=== PATIENT | female | born 1950 | race Caucasian/White ===

== ENCOUNTER → 2021-04-04 10:52 | Outpatient (BNVA) | payer MEDICARE, MEDICAID, SELFPAY | PROVIDERS: Visit Provider Nurse Practitioner | DX: R05.9 Cough, unspecified (principal) | CPT/HCPCS: 87400 ==

== ENCOUNTER → 2021-04-30 15:05 | Outpatient (BNVA) | payer MEDICARE, MEDICAID, SELFPAY | PROVIDERS: Visit Provider Family Medicine | DX: M25.562 Pain in left knee (principal) | CPT/HCPCS: 73562 ==

== ENCOUNTER 2021-09-10 11:52 | Outpatient (CLI) | payer OTHER, MEDICAID, SELFPAY ==
--- NOTE | 2021-09-10 12:02 | MR_ITS ---
WS: [id number] MRI LEFT KNEE NONCONTRAST TECHNIQUE: Axial PD, coronal PD fat sat, coronal PD, sagittal PD, and sagittal PD fat-sat images obta ined. CLINICAL INFORMATION: M25.562 - Pain in left knee COMPARISON: None. FINDINGS: Normal ACL and PCL. Distal quadriceps and patella tendons are intact. Slightly hypertrophic patella. Small amount of prepatellar and infrapatellar soft tissue edema. Small suprapatellar effusion. Peripheral extrusion of the medial and lateral meniscus. Horizontal tears involving the anterior horn lateral meniscus and posterior horn medial meniscus with extension to the articular surface. Grade I II to IV chondromalacia medial and lateral joint compartments with subchondral edema involving the la teral tibial plateau. Small amount of subchondral cystic change. Slight hypertrophic changes along th e joint line. Small amount of fluid and edema deep to the MCL compatible with grade one injury. Normal LCL. Normal popliteus. Grade III chondromalacia patella. Normal medial and lateral patellar retinaculum. Lobulate d popliteal cyst measuring 2.1 x 1.0 x 4.1 cm AP by transverse by craniocaudal MR/MR knee LT wo con* [id number] IMPRESSION: 1. Normal ACL and PCL. 2. Horizontal tear involving the posterior horn medial meniscus extending to t he articular surface and anterior horn lateral meniscus extending to the articu lar surface. Peripheral extrusion of the menisci bilaterally. 3. Small amount of edema and fluid deep to the MCL compatible with grade one i njury. 4. Grade 3-4 chondromalacia involving the medial and lateral joint compartment s with a small amount of subchondral edema along the lateral tibial plateau wit h subchondral cystic change. 5. Small suprapatellar effusion with grade III chondromalacia patella. 6. Popliteal cyst measures 2.1 x 1.0 x 4.1 cm AP by transverse by craniocaudal Outbridge grading: grade III: partial-thickness cartilage loss with focal ulcer ation
== END 2021-09-10 11:53 | disposition home or self-care (01) ==
LOC: RAD 11:54
PROVIDERS: Visit Provider Family Medicine
DX: M25.562 Pain in left knee (principal)
CPT/HCPCS: 73721

== ENCOUNTER 2021-09-23 17:45 | Emergency (ER) | payer MEDICARE, MEDICAID, SELFPAY ==
[2021-09-23 17:57] VITALS: BP 173/98; PULSE 86; RESP 18; TEMP 36.8; O2SAT 97; BMI 33.3
--- NOTE | 2021-09-23 18:10 | CTR_ITS ---
PROCEDURE INFORMATION: Exam: CT Head Without Contrast Exam date and time: 09/23/2021 7:27 PM Age: 71 years old Clinical indication: Dizziness; Additional info: Dizzy TECHNIQUE: Imaging protocol: Computed tomography of the head without contrast. Radiation optimization: All CT scans at this facility use at least one of these dose optimization techniques: automated exposure control; mA and/or kV adjustment per patient size (includes targeted exams where dose is matched to clinical indication); or iterative reconstruction. COMPARISON: No relevant prior studies available. RADIATION DOSE METRICS: Total DLP (mGy-cm): 920.34 FINDINGS: Brain: Mild white matter chronic microvascular changes are noted. No hemorrhage or evidence of acute infarction. Cerebral ventricles: No ventriculomegaly. Paranasal sinuses: Visualized sinuses are unremarkable. No fluid levels. Mastoid air cells: Visualized mastoid air cells are well aerated. Bones/joints: Unremarkable. No acute fracture. Soft tissues: Unremarkable. CT/CT head wo con* [id number] IMPRESSION: No acute intracranial abnormality.
--- NOTE | 2021-09-23 18:10 | XRR_ITS ---
PROCEDURE INFORMATION: Exam: XR Chest Exam date and time: 09/23/2021 6:26 PM Age: 71 years old Clinical indication: Dyspnea; Additional info: Syncope TECHNIQUE: Imaging protocol: Radiologic exam of the chest. Views: 1 view. COMPARISON: No relevant prior studies available. FINDINGS: Lungs: The lungs are clear. Pleural spaces: Unremarkable. No pleural effusion. No pneumothorax. Heart/Mediastinum: Rounded opacity adjacent to the left ventricle apex is likely a pericardial fat pad. The heart is normal in size. Lobular prominence of the left hilum may be secondary to tortuous vascularity or possibly mild lymphadenopathy. Bones/joints: Unremarkable. XR/XR chest 1V portable [id number] IMPRESSION: 1. No acute pulmonary abnormality. 2. Tortuous vascularity versus mild lymphadenopathy in the left hilum. Correlate with prior imaging if available.
--- NOTE | 2021-09-23 18:10 | ECG_ITS ---
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 Measurements Intervals [place] Rate: 77 P: 76 OK: 151 QRS: 14 QRSD: 86 T: 55 QT: 369 QTc: 419 Interpretive Statements SINUS RHYTHM INTERPRETATION BASED ON A DEFAULT AGE OF 40 YEARS No previous ECG available for comparison Electronically Signed On 09-23-2021 22:30:31 CDT by José Luis Cote M.D. [email or web address] [email or web address]/store/[id number] f
[2021-09-23 19:03] LABS: Basophils # 0.1 10^3/uL (0.0-0.1); Basophils % 0.8 %; Eosinophils # 0.1 10^3/uL (0.0-0.8); Eosinophils % 1.4 %; Hematocrit 46.1 % (37.0-47.0); Hemoglobin 15.4 g/dL (11.5-15.3); Lymphocytes # 3.5 10^3/uL (0.8-4.8); Lymphocytes % 44.3 %; Mean Corpuscular HGB Conc 33.4 g/dL (30.0-36.0); Mean Corpuscular Hemoglobin 29.7 pg (28.0-34.0); Mean Platelet Volume 10.3 fL (7.4-10.4); Monocytes # 0.7 10^3/uL (0.2-0.9); Monocytes % 8.5 %; Neutrophils # 3.52 10^3/uL (1.8-7.7); Neutrophils % 44.9 %; Nucleated Red Blood Cells % 0 %; Platelet Count 309 10^3/cmm (130-400); Red Blood Count 5.18 10^6/uL (4.1-5.3); Red Cell Distribution Width 13.6 % (12.1-15.1); White Blood Count 7.9 10^3/uL (4.0-10.0)
[2021-09-23 19:19] LABS: Troponin(5th) Baseline 6 ng/L (0-10)
[2021-09-23 19:29] LABS: Alanine Aminotransferase 19 U/L (0-33); Albumin Level 4.3 g/dL (3.5-5.2); Alkaline Phosphatase 84 IU/L (35-105); Anion Gap 17.6 (5-19); Aspartate Amino Transferase 19 U/L (0-32); Blood Urea Nitrogen 12 mg/dL (8-23); Calcium 8.9 mg/dL (8.5-10.5); Carbon Dioxide 21 mmol/L (22-29); Chloride 101 mmol/L (98-107); Globulin 3.4 g/dL (1.3-4.6); Glucose 94 mg/dL (65-115); Osmolality Calculated 282 mOsm/kg (285-295); Potassium 3.6 mmol/L (3.5-5.1); Sodium 136 mmol/L (136-145); Total Bilirubin 0.2 mg/dL (0.15-1.2); Total Protein 7.7 g/dL (6.6-8.7)
--- NOTE | 2021-09-23 20:10 | ECG_ITS ---
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 Measurements Intervals [place] Rate: 72 P: 66 UT: 158 QRS: 22 QRSD: 97 T: 53 QT: 407 QTc: 447 Interpretive Statements SINUS RHYTHM LOW QRS VOLTAGE IN PRECORDIAL LEADS [QRS DEFLECTION < 1.0 mV IN CHEST LEADS] Compared to ECG 09/23/2021 18:33:50 Low QRS voltage now present Electronically Signed On 09-23-2021 22:41:12 CDT by José Luis Cote M.D. [email or web address]/store/[id number]
--- NOTE | 2021-09-23 20:53 | ED_ITS ---
HPI - General Adult General: Chief complaint: Dizziness Stated complaint: Dizzy\Light Headed Still Anxiety Time Seen by Provider: 09/23/21 20:11 History of Present Illness: HPI: [71]yo patient w/ hx of former smoking, HTN not on medication after two episodes of light-headednesss at 5:15pm. Patient was sitting down watching TV when this happened. Patient then attempted to get up and began experience an episode of lightheadedness. Each episode of lightheadedness and just lasted for no more than a few seconds at a time. Patient reports mild palpitation with the episode. Patient could not recall the incident but denies any post-ictal confusion, tongue biting or bladder/bowel incontinence. Patient denies any prior hx of syncope in the past. No associated symptoms of chest pain, shortness of breath, or focal weakness right before the incident. No family hx of sudden cardiac or unexplained . Onset: 3 hrs ago Duration: twice lasting for a few seconds at a time Location: home Severity: moderate Associated symptoms: Reports palpitations; Deny chest pain, dyspnea, nausea, rash or vomiting Review of Systems Const: Denies: fever(s) or chills Eyes: Denies: change in vision ENMT: Denies: mouth pain Card: Reports: palpitations; Denies: chest pain Resp: Denies: dyspnea or non-productive cough GI: Denies: abdominal pain, nausea, vomiting or diarrhea : Denies: dysuria Musc: Denies: extremity pain Skin/Breast: Denies: rash or new lesions Neuro: Reports: other (+light-headedness); Denies: weakness in extremities Psych: Reports: other (Normal mood) Danilo/Lymph: Denies: easy bruising PFSH ED PFSH: Medical History Hypertension Social History Smoking and tobacco status: never smoked Alcohol intake: never Physical Exam Const: COMMON NORMALS: alert HENMT: COMMON NORMALS: atraumatic HEAD & SCALP: atraumatic MOUTH: moist mucous membranes not abnormal Eye: COMMON NORMALS: EOMs intact bilaterally and conjunctivae normal CONJUNCTIVA: Yes conjunctivae normal Neck/C-Spine: COMMON NORMALS: full ROM and supple Resp: COMMON NORMALS: normal respiratory effort and clear to auscultation bilaterally AUSCULTATION: clear to auscultation bilaterally Cardio: COMMON NORMALS: regular rate RATE: regular rate OTHER: 2+ radial pulses b/l GI: COMMON NORMALS: Soft to palpation and non-tender PALPATION: Yes Soft to palpation Extremity: COMMON NORMALS: full ROM Neuro: SENSORIUM/ORIENTATION: Yes alert MOTOR EXAM: No Abnormal motor strength present and Other motor observations present (no focal motor deficits) OTHER: Mental status? Awake, alert, and oriented to self, year, month, location, and situation.? Following simple axial and appendicular commands.? Has appropriate fund of knowledge, comprehension, and insight.? Able to recall and understands pertinent aspects of medical history and current treatment status.? ? Language? Speech is fluent without word-finding difficulties.? 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 ? Cranial nerves? 2,3,4,6: PERRL, EOMI with no nystagmus. 5: Intact sensation to light touch, symmetric? 7: Smile symmetrical, no facial droop.? 8: Hearing grossly intact.? 9,10: Normal palate movement.? 11: Normal strength in trapezius bilaterally 12: Tongue protrudes midline.? ? Motor examination? Normal bulk & tone. Strength as follows (R/L): Delts (5/5), Biceps (5/5), Triceps (5/5), Wrist ext (5/5), hip flexors (5/5), plantarflexors (5/5), dorsiflexors (5/5). ? Sensation? Light Touch: Grossly intact and equal in upper and lower extremities bilat erally? Romberg: Negative.? Distal joint position sense intact ? Coordination? Jpkrld-ct-[id number]-finger movements intact without dysmetria or past-pointing.? Rapid fingertaps: preserved amplitude without decriment.? No tremor, myoclonus or truncal ataxia.? ? Gait/stance? Steady, normal narrow base gait with appropriate arm swing and turning.? Tandem gait without hesitation or loss of balance. Psych: COMMON NORMALS: speech normal SPEECH: Yes normal speech MOOD & AFFECT: Yes euthymic mood Course Vital Signs: Vital signs: Vital Signs Temperature 97.9 F 09/23/21 23:10 Pulse Rate 71 09/23/21 23:10 Respiratory Rate 16 09/23/21 23:10 Blood Pressure 141/68 09/23/21 23:10 Pulse Oximetry 98 09/23/21 23:10 MDM - General Adult Medical Decision Making []yo patient w/ hx of HTN and former 50 pack year of smoking presenting to the ED with light-headedness x 2 and palpitations. No association with chest pain, dyspnea, palpitations, or focal neurological deficits. HDS Neuro intact. Fingerstick wnl. Given history, exam and workup, presentation not consistent with seizures given a short time course, no postictal state, no seizure activity. Low suspicion for acute neurologic catastrophes to include ICH given lack of trauma, risk factors for bleeding diathesis, or neurogenic causes of syncope. Low suspicion for vascular catastrophes to include PE, thoracic aortic dissection, AAA rupture. Presentation not consistent with acute life threatening arrhythmia, structural heart disease, electrical conduction abnormalities, or ACS. Workup: EKG, fingerstick, orthostatics, troponin x 2, EKG x 2, CT head, XR chest Intervention: Serial reevaluation, telemetry, PO challenge Findings: EKG: No e/o STEMI. No evidence of Brugada?s sign, delta wave, epsilon wave, significantly prolonged QTc, HOCM or malignant arrhythmia. Work-up including troponin x2 within normal limit. EKG did not show any signs of ischemia. CTA negative for any acute pathology. Patient received IVF now reports feeling symptomatically improved. Patient has not had any further episodes of lightheadedness or dysrhythmia in the emergency room. Patient has been able to tolerate PO and ambulate in the ER without issues. Delta troponin <4. At 9:20pm, I performed shared decision-making with patient regarding admission versus discharge today, and patient prefers to be discharged. I ahve discussed given patient's risk factors that she would better off admitted to the hospital. However since patient has an appointment with orthopedics tomorrow morning, she would like to go home and get some sleep prior to be seen by orthopedic first thing in the morning. I explained the risks of leaving the hospital today including lethal arrythemia, NH, strokens and even . Patient verbalizes understanding of these discussed risk and elect for the alternative of following up earlier next week for evaluation by Cardiology. Patient verbalizes understanding to return for any worsening symptoms including chest pain, dyspnea, fatigue, arm pain/jaw pain/back pain or any new or concerning is sues. Patient is currently HDS, ambulated without any diffiuclities I have given patient follow up with our nurse case manager to be seen by our outpatient Cardiology for light-headedness and palpitations. Patient aware of a call from our nurse case manager to schedule for appointment(s) and verbalizes unders tanding of the importance of following up. In addition, I will set patient up with an event monitor to go home with as patient elects to follow up closely with Cardiology. Disposition: Discharge. Patient is at baseline at this time. Return precautions expressed and understood in person. Advised follow up with a primary care provider and cardiology in the next 24-48 hours. Given return instructions for any new or concerning symptoms including chest pain, focal neurological deficits, dyspnea, or any new or concerning findings. Lab Data : 09/23/21 18:45 09/23/21 18:45 Radiology Impressions Chest X-Ray 09/23/21 18:10 IMPRESSION: 1. No acute pulmonary abnormality. 2. Tortuous vascularity versus mild lymphadenopathy in the left hilum. Correlate with prior imaging if available. Head CT 09/23/21 18:10 IMPRESSION: No acute intracranial abnormality. Laboratory Results WBC 7.9 10^3/uL (4.0-10.0) 09/23/21 18:45 RBC 5.18 10^6/uL (4.1-5.3) 09/23/21 18:45 Hgb 15.4 g/dL (11.5-15.3) H 09/23/21 18:45 Hct 46.1 % (37.0-47.0) 09/23/21 18:45 MCV 89.0 fl (81-99) 09/23/21 18:45 MCH 29.7 pg (28.0-34.0) 09/23/21 18:45 MCHC 33.4 g/dL (30.0-36.0) 09/23/21 18:45 RDW 13.6 % (12.1-15.1) 09/23/21 18:45 Plt Count 309 10^3/cmm (130-400) 09/23/21 18:45 MPV 10.3 fL (7.4-10.4) 09/23/21 18:45 Neut % (Auto) 44.9 % 09/23/21 18:45 Lymph % (Auto) 44.3 % 09/23/21 18:45 Gila % (Auto) 8.5 % 09/23/21 18:45 Eos % (Auto) 1.4 % 09/23/21 18:45 Baso % (Auto) 0.8 % 09/23/21 18:45 Neut # (Auto) 3.52 10^3/uL (1.8-7.7) 09/23/21 18:45 Lymph # (Auto) 3.5 10^3/uL (0.8-4.8) 09/23/21 18:45 Gila # (Auto) 0.7 10^3/uL (0.2-0.9) 09/23/21 18:45 Eos # (Auto) 0.1 10^3/uL (0.0-0.8) 09/23/21 18:45 Baso # (Auto) 0.1 10^3/uL (0.0-0.1) 09/23/21 18:45 Nucleated RBC % (auto) 0 % 09/23/21 18:45 Nucleated RBCs # 0.0 /100WBC 09/23/21 18:45 Sodium 136 mmol/L (136-145) 09/23/21 18:45 Potassium 3.6 mmol/L (3.5-5.1) 09/23/21 18:45 Chloride 101 mmol/L (98-107) 09/23/21 18:45 Carbon Dioxide 21 mmol/L (22-29) L 09/23/21 18:45 Anion Gap 17.6 (5-19) 09/23/21 18:45 BUN 12 mg/dL (8-23) 09/23/21 18:45 Creatinine 0.7 mg/dL (0.5-0.9) 09/23/21 18:45 GFR Calculation Not Reportable 09/23/21 18:45 Glucose 94 mg/dL (65-115) 09/23/21 18:45 Calculated Osmolality 282 mOsm/kg (285-295) L 09/23/21 18:45 Calcium 8.9 mg/dL (8.5-10.5) 09/23/21 18:45 Total Bilirubin 0.2 mg/dL (0.15-1.2) 09/23/21 18:45 AST 19 U/L (0-32) 09/23/21 18:45 ALT 19 U/L (0-33) 09/23/21 18:45 Alkaline Phosphatase 84 IU/L (35-105) 09/23/21 18:45 Troponin T Baseline 6 ng/L (0-10) 09/23/21 18:45 Troponin T 120 Minute 6.00 ng/L (0-10) 09/23/21 20:38 Delta Troponin T 0 ABS# (0-10) 09/23/21 20:38 Total Protein 7.7 g/dL (6.6-8.7) 09/23/21 18:45 Albumin 4.3 g/dL (3.5-5.2) 09/23/21 18:45 Globulin 3.4 g/dL (1.3-4.6) 09/23/21 18:45 Imaging Data Other Imaging: Radiologist's impression: [place] [address] CT Scan Report Signed Patient: Cassidy Estrada Unit #: [id number] : 1950 Age/Sex: 71 / F ADM Date: 09/23/21 Loc: ER Room/Bed: Attending Dr: Ordering Provider/Ordering MD: Casandra Velarde MD Date of Service: 09/23/21 Procedure(s): CT head wo con* [id number] Accession Number(s): [id number] Report Number: [id number] PROCEDURE INFORMATION: Exam: CT Head Without Contrast Exam date and time: 09/23/2021 7:27 PM Age: 71 years old Clinical indication: Dizziness; Additional info: Dizzy TECHNIQUE: Imaging protocol: Computed tomography of the head without contrast. Radiation optimization: All CT scans at this facility use at least one of these dose optimization techniques: automated exposure control; mA and/or kV adjustment per patient size (includes targeted exams where dose is matched to clinical indication); or iterative reconstruction. COMPARISON: No relevant prior studies available. RADIATION DOSE METRICS: Total DLP (mGy-cm): 920.34 FINDINGS: Brain: Mild white matter chronic microvascular changes are noted. No hemorrhage or evidence of acute infarction. Cerebral ventricles: No ventriculomegaly. Paranasal sinuses: Visualized sinuses are unremarkable. No fluid levels. Mastoid air cells: Visualized mastoid air cells are well aerated. Bones/joints: Unremarkable. No acute fracture. Soft tissues: Unremarkable. CT/CT head wo con* [id number] IMPRESSION:? No acute intracranial abnormality. ? Dictated By: Travon Stafford MD Signed By: Travon Stafford MD Signed Date/Time: 09/23/211939 DD/ [address] [address] XRay Report Signed Patient: Cassidy Estrada Unit #: [id number] : 1950 Age/Sex: 71 / F ADM Date: 09/23/21 Loc: ER Room/Bed: Attending Dr: Ordering Provider/Ordering MD: Casandra Velarde MD Date of Service: 09/23/21 Procedure(s): XR chest 1V portable [id number] Accession Number(s): [id number] Report Number: [id number] PROCEDURE INFORMATION: Exam: XR Chest Exam date and time: 09/23/2021 6:26 PM Age: 71 years old Clinical indication: Dyspnea; Additional info: Syncope TECHNIQUE: Imaging protocol: Radiologic exam of the chest. Views: 1 view. COMPARISON: No relevant prior studies available. FINDINGS: Lungs: The lungs are clear. Pleural spaces: Unremarkable. No pleural effusion. No pneumothorax. Heart/Mediastinum: Rounded opacity adjacent to the left ventricle apex is likely a pericardial fat pad. The heart is normal in size. Lobular prominence of the left hilum may be secondary to tortuous vascularity or possibly mild lymphadenopathy. Bones/joints: Unremarkable. XR/XR chest 1V portable [id number] IMPRESSION: 1. No acute pulmonary abnormality. 2. Tortuous vascularity versus mild lymphadenopathy in the left hilum. Correlate with prior imaging if available. ? Dictated By: Travon Stafford MD Signed By: Travon Stafford MD Signed Date/Time: 09/23/211940 DD/ 25 Discharge Plan Discharge Patient Disposition: Home Clinical Impression: Light headedness, Palpitations Condition: Stable Prescriptions: No Action prednisone 10 mg tablet 30 mg PO DAILY 5 Days Qty: 15 0RF doxycycline hyclate 100 mg capsule 100 mg PO BID 7 Days Qty: 14 0RF diclofenac sodium [Voltaren Arthritis Pain] 1 % gel 2 g topical QID Qty: 100 0RF Rx Instructions: apply to knee qid prn. Discharge Orders: Discharge ED (Routine); Ordered 09/23/21 Ordered By: Lauren Son Other Ambulatory Orders: MCT/Event Monitor 21 Days (Routine) Timeframe: 3 Weeks Facility: [facility] - Location: Radiology Ordered By: Lauren Son Discharge Diet: Advance as tolerated Discharge Activity: Increase activity as tolerated Patient Instructions: Syncope (ED) Activity Restrictions/Additional Instructions: Please come back to the emergency room for any more breakthrough episodes of passing out. Come back if any weakness in her arms, drooling, difficulty speaking, any neurological symptoms, chest pain/shortness of breath/palpitation or any new or concerning issues. Please do not swim, bathe, operate heavy machinery or drive a vehicle unattended. Our nurse case manager will have you follow-up with Cardiology in the next few days. You would be expected to have a phone call with our nurse case manager who will put you on the schedule. You can expect a call from us in the next 2-3 days. If you don't hear from us, call us back in the emergency room at [phone]. Coding Level of Care Code ED Pattern Vault Clerk for Aminta Rodríguez Exam Comprehensive
[2021-09-23 21:17] VITALS: BP 129/91; BP 157/87; BP 166/92; PULSE 76; PULSE 89; PULSE 96
[2021-09-23] MEDS: sodium chloride 0.9% 500 ML IV (21:41)
[2021-09-23 22:40] LABS: Troponin 5 2HR Delta 0 ABS# (0-10)
[2021-09-23 23:10] VITALS: BP 141/68; PULSE 71; RESP 16; TEMP 36.6; O2SAT 98
--- NOTE | 2021-09-24 09:47 | PC.SOCIAL ---
Addendum entered by Rosio Molina 10/17/21 15:58: Patient has a follow up appointment scheduled for Wednesday November 17, 2021 at 11:[address] Cote. Clinic will call patient with appointment information. Original Note: Cardiology Follow Up Message request send to cardiology for follow up appointment. Clinic will call patient for appointment.
--- NOTE | 2021-09-26 15:47 | DCPLANNER ---
Addendum entered by Rosio Molina 11/25/21 13:21: Patient had a follow up appointment scheduled for 11.17.21 with heart care - patient did attend appointment. Addendum entered by Rosio Molina 10/27/21 11:01: Patient had a follow up appointment scheduled for 10.07.21 at [facility] for a 21 day event - patient did attend appointment. Original Note: food operations manager had message to schedule a follow up appointment for patient with a 21 day event monitor at [facility]. food operations manager called to confirm that patient wanted the monitor ordered and to confirm who patient sees for primary care. Patient stated that she wanted the monitor placed and that patient sees Dr. Bowen for primary care. food operations manager faxed signed order to heart care services. Clinic will call patient with appointment information.
== END 2021-09-23 23:13 | disposition home or self-care (01) ==
PROVIDERS: Emergency Medicine; Emergency Provider Emergency Medicine
DX: R42 Dizziness and giddiness (principal); R00.2 Palpitations; I10 Essential (primary) hypertension
CPT/HCPCS: 70450; 71045; 80053; 84484; 85025; 93005; 96360; 99285; J7040

== ENCOUNTER → 2021-09-24 08:30 | Outpatient (BNVA) | payer MEDICARE, MEDICAID, SELFPAY | PROVIDERS: Referring Provider Family Medicine; Visit Provider Orthopaedic Surgery | DX: M17.12 Unilateral primary osteoarthritis, left knee (principal) | CPT/HCPCS: 99203; 99204 ==

== ENCOUNTER → 2021-10-07 10:34 | Outpatient (BNVA) | payer MEDICARE, MEDICAID, SELFPAY | PROVIDERS: PCP Family Medicine | DX: R55 Syncope and collapse (principal); I49.3 Ventricular premature depolarization; I49.1 Atrial premature depolarization | CPT/HCPCS: 93229 ==

== ENCOUNTER → 2021-11-17 11:15 | Outpatient (BNVA) | payer MEDICARE, MEDICAID, SELFPAY | PROVIDERS: PCP Family Medicine; Visit Provider Internal Medicine Cardiovascular Disease | DX: I49.9 Cardiac arrhythmia, unspecified (principal); R07.89 Other chest pain; R03.0 Elevated blood-pressure reading, without diagnosis of hypertension | CPT/HCPCS: 99204 ==

== ENCOUNTER 2022-02-08 07:06 | Emergency (ER) | payer MEDICARE, MEDICAID, SELFPAY ==
[2022-02-08 07:12] VITALS: BP 149/88; PULSE 83; RESP 14; TEMP 36.6; O2SAT 97; BMI 33.3
--- NOTE | 2022-02-08 07:15 | XRR_ITS ---
PROCEDURE INFORMATION: Exam: XR Right Foot Exam date and time: 02/08/2022 8:29 AM Age: 71 years old Clinical indication: Pain; Foot; Right; Additional info: Foot pain TECHNIQUE: Imaging protocol: Radiologic exam of the Right foot. Views: 3 or more views. COMPARISON: No relevant prior studies available. FINDINGS: Bones/joints: No acute fracture or malalignment. Moderate 1st MTP joint degenerative changes. Osteopenia. Os navicularis and os peroneum. Calcaneal enthesopathy. Soft tissues: Normal. XR/XR foot RT min 3V* [id number] IMPRESSION: No acute fracture or malalignment.
[2022-02-08 07:16] VITALS: BP 150/99; PULSE 70; PULSE 83; RESP 16; TEMP 36.6; O2SAT 97
--- NOTE | 2022-02-08 07:17 | ED_ITS ---
HPI - Extremity Problem General: Chief complaint: Extremity Injury, Lower Stated complaint: right foot injury Time Seen by Provider: 02/08/22 07:11 Source: patient Mode of arrival: ambulatory Limitations: no limitations History of Present Illness: 1-year-old female presents to the ER today for right ankle pain x4 days. Patient reports about 4 days ago she tripped over her dog's ball and rolled her right ankle. Patient reports she had significant pain initially however she was also not feeling well so she did not feel like having it examined. Patient reports over the last 4 days she is continue to walk on it and the pain and swelling is getting worse. Patient reports significant bruising over the outside and inside of the right ankle. Patient reports she did break metatarsals 2 through 4 in the past however has had no issues with those. Patient reports she is just taking [id number] medications at this time. Review of Systems 2 General: Reports: 10 or more systems reviewed and unremarkable except in HPI and below PFSH ED PFSH: Medical History Hypertension Family History Other Adopted Social History Smoking and tobacco status: former smoker Alcohol intake: never Physical Exam Const: COMMON NORMALS: no acute distress, average body habitus, patient oriented x3, no limitations, healthy appearing, alert and well nourished Resp: COMMON NORMALS: normal respiratory effort EFFORT & INSPECTION: Yes able to speak in complete sentences Cardio: COMMON NORMALS: regular rate and regular rhythm RATE: regular rate RHYTHM: regular rhythm Extremity: NARRATIVE EXTREMITY EXAM: Patient has moderate swelling of the right ankle especially over the right lateral malleolus and forefoot. Patient is tender to palpation along the distal fibula. Patient has limited range of motion secondary to swelling and pain. Neuro: COMMON NORMALS: patient oriented x3 SENSORIUM/ORIENTATION: Yes alert Psych: COMMON NORMALS: mental status grossly normal, Normal thought process present and cooperative THOUGHT PROCESS: Normal thought process present Skin: NARRATIVE SKIN EXAM: Bruising noted worse in the lateral aspect of the right foot but also some noted in the medial compartment over the medial malleolus. Course ED course: We will get an x-ray at this time. Patient is weightbearing however there is moderate swelling and bruising noted. Vital Signs: Vital signs: Vital Signs Temperature 97.8 F 02/08/22 07:16 Pulse Rate 70 02/08/22 07:16 Respiratory Rate 16 02/08/22 07:16 Blood Pressure 150/99 02/08/22 07:16 Pulse Oximetry 97 02/08/22 07:16 Oxygen Delivery Me thod 02/08/22 07:16 MDM - Extremity (Nontraumatic) Medical Decision Making X-ray negative for acute fracture. Patient likely has a right ankle sprain. Patient was placed in an Brooks wrap and reports improvement in the pain with the wrap in place. Recommended rest, ice, elevation. Take ibuprofen x1 week. Follow-up with PCP in 7 to 10 days if no improvement. Return to the ER with any new or worsening symptoms. Patient verbalized understanding and was in agreement with the treatment plan. Lab Data Radiology Impressions Foot X-Ray 02/08/22 07:15 IMPRESSION: No acute fracture or malalignment. Critical Care Time Critical Care Time: Critical Care Time: No Discharge Plan Discharge Patient Disposition: Home Clinical Impression: Sprain of ankle, right Qualifiers: Encounter type: initial encounter Involved ligament of ankle: unspecified ligament Qualified Code(s): S93.401A - Sprain of unspecified ligament of right ankle, initial encounter Condition: Stable Prescriptions: No Action multivitamin Tablet 1 tab PO DAILY metoprolol tartrate 25 mg tablet 25 mg PO BID 30 Days Qty: 60 5RF Discharge Orders: Discharge ED (Routine); Ordered 02/08/22 Ordered By: Romana Aviles Referrals: Enma Bowen MD [Primary Care Provider] - Discharge Diet: Usual diet Discharge Activity: Increase activity as tolerated Patient Instructions: Opioid Safety, Pain Management Activity Restrictions/Additional Instructions: Rest, ice, ibuprofen recommended. Elevate foot is much as possible when at home. Follow-up with PCP in 10 to 14 days if no improvement. Return to the ER with new or worsening symptoms. 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
[2022-02-08 09:12] VITALS: PULSE 78; O2SAT 97
== END 2022-02-08 09:13 | disposition home or self-care (01) ==
PROVIDERS: Emergency Provider Physician Assistant; PCP Family Medicine
DX: S93.401A Sprain of unspecified ligament of right ankle, initial encounter (principal); X50.1XXA Overexertion from prolonged static or awkward postures, initial encounter
CPT/HCPCS: 73630; 99283

== ENCOUNTER → 2022-12-06 15:29 | Outpatient (BNVA) | payer MEDICARE, MEDICAID, SELFPAY | PROVIDERS: PCP Family Medicine; Visit Provider Family Medicine | DX: J06.9 Acute upper respiratory infection, unspecified (principal) | CPT/HCPCS: 87400; 87426 ==